=== PATIENT | male | born 1990 | race Caucasian/White ===

== ENCOUNTER 2017-08-01 21:28 | Inpatient (IN) | payer BC, OTHER ==
[~2017-08-01] VITALS: Ht 172.7 cm; Wt 86.2 kg
[2017-08-01] VITALS: BP 124/85
[2017-08-01] MEDS ORDERED: CLONIDINE HCL 0.1 MG TABLET PO PRN (23:00)
[2017-08-01] MEDS ORDERED: LORAZEPAM 2 MG/1 ML VIAL IM PRN (23:00)
[2017-08-01] MEDS ORDERED: LORAZEPAM 1 MG TABLET PO PRN (23:00)
[2017-08-01] MEDS ORDERED: DICYCLOMINE HCL 20 MG TABLET PO PRN (23:00)
[2017-08-01] MEDS ORDERED: ONDANSETRON 4 MG/2 ML VIAL IM PRN (23:00)
[2017-08-01] MEDS ORDERED: LOPERAMIDE HCL 2 MG CAPSULE PO PRN ×2 (23:00)
[2017-08-01] MEDS ORDERED: ACETAMINOPHEN 325 MG TABLET PO PRN (23:00)
[2017-08-01] MEDS ORDERED: METHOCARBAMOL 750 MG TABLET PO PRN (23:00)
[2017-08-01] MEDS ORDERED: BUPRENORPHINE HCL 2 MG TAB.SUBL SL PRN (23:00)
[2017-08-01] MEDS ORDERED: IBUPROFEN 600 MG TABLET PO PRN (23:00)
[2017-08-01] MEDS ORDERED: MAGNESIUM HYDROXIDE 30 ML LIQUID UDC PO PRN (23:00)
--- NOTE | 2017-08-01 23:10 | NUR ---
INTAKE ASSESSMENT BP: 172/86, HR:100, RR:18, SpO2: 96%, T:98.0 Pt is intoxicated. Pt is in stable condition and able to be admitted on the unit. Unit protocols regarding medications and vital signs every 4 hours were explained. Pt verbalized understanding. Will continue admission upon arrival on the unit.
[2017-08-01 23:51] LABS: BASOPHILS # (AUTO) 0.1 K/uL (0.0-8.0); BASOPHILS % (AUTO) 0.6 % (0.0-2.0); EOSINOPHILS % (AUTO) 0.3 % (0.0-7.0); HEMATOCRIT 47.9 % (36.7-47.1); HEMOGLOBIN 16.1 g/dL (12.5-16.3); LYMPHOCYTES # (AUTO) 2.2 K/uL (20.0-40.0); LYMPHOCYTES % (AUTO) 18.7 % (20.5-51.5); MEAN CORPUSCULAR HEMOGLOBIN 31.1 uug (23.8-33.4); MEAN CORPUSCULAR HGB CONC 34 g/dL (32.5-36.3); MEAN CORPUSCULAR VOLUME 92.5 fL (73.0-96.2); MONOCYTES # (AUTO) 1.1 K/uL (2.0-10.0); MONOCYTES % (AUTO) 9.2 % (0.0-11.0); NEUTROPHILS # (AUTO) 8.4 K/uL (1.8-8.9); NEUTROPHILS % (AUTO) 71.2 % (38.5-71.5); PLATELET COUNT (AUTO) 224 K/uL (152-348); RED BLOOD CELL COUNT(AUTO) 5.18 MIL/uL (4.06-5.63); WHITE BLOOD COUNT (AUTO) 11.7 K/uL (3.6-10.2)
[2017-08-01 23:55] LABS: ETHANOL < 3 MG/DL (0-0)
--- NOTE | 2017-08-01 23:55 | NUR ---
ADMISSION NOTE Pt arrived ambulatory from [facility] Intake to the third floor accompanied by a WINE STEWARD/STEWARDESS at 2321. Pt is a 27 year old male admitted on 08/01/17 for ETOH, Opiate, Benzodiazepine and Methamphetamine withdrawal. Pt is full code with NKA. He reports PMHx of anxiety and depression. He brought home medications and supplements. Medication has been reconciled. Pt reports coming from [facility] in [place], [place]. His longest sobriety was for 2 weeks, 5 days ago. He reports he is here because" I relapsed." He describes his current use as: 1. ETOH (beer) "20" beers daily for 5 days. Last dose: 07/31/17 2. Heroin IV 1 gram daily for 5 days. Last dose: 08/01/17 3. Klonopin 6-12 mg daily for 5 days. Last dose: 08/01/17 4. Methamphetamine IV intermittently for 5 days. Last dose: Unable to recall. He describes his withdrawal symptoms as: " body aches, nausea, vomiting, insomnia, tremors, chills and sweats" Upon assessment, pt is alert and oriented x4, speech is clear but delayed from intoxication. Pt noted to be anxious, restless, agitated, fatigued, and irritable. He is noted with poor eye contact, vague answers during admission interview, poor insight, flushed face, difficulty concentrating and reported he just wants to go to sleep. Heart rate is regular. He denies chest pain or SOB. PERRLA, breathing is even and unlabored, lung sounds clear. Abdomen is soft and non-distended. Bowel sounds present in all quadrants, last BM 07/31/17. Pt reports that BM is regular. Pt's skin is warm, dry and intact. Pt was seen and examined by Dr. Crow. Pt oriented to room and unit. Safety measures in place, side rails up x2. Will continue to monitor.
[2017-08-01 23:58] LABS: ALANINE AMINOTRANSFERASE 167 U/L (16-63); ALKALINE PHOSPHATASE 110 U/L (50-136); AMYLASE 42 U/L (25-115); ASPARTATE AMINOTRANSFERASE 88 U/L (15-37); BILIRUBIN,TOTAL 1.8 mg/dL (0.2-1.0); CARBON DIOXIDE 31 mmol/L (21-32); CHLORIDE 98 mmol/L (98-107); CREATININE 1.2 mg/dL (0.6-1.3); GLUCOSE 129 mg/dL (74-106); MAGNESIUM 2.1 mg/dL (1.8-2.4); POTASSIUM 3.9 mmol/L (3.5-5.1); TOTAL PROTEIN, SERUM 8.6 g/dL (6.4-8.2); UREA NITROGEN, BLOOD 20 mg/dL (7-18)
[2017-08-02] VITALS: BP 124/85
[2017-08-02 00:32] LABS: *AMPHETAMINE, URINE POSITIVE (NEGATIVE); *BARBITURATE, URINE NEGATIVE (NEGATIVE); *CANNABINOID, URINE NEGATIVE (NEGATIVE); *COCCAINE, URINE NEGATIVE (NEGATIVE); *OPIATE, URINE POSITIVE (NEGATIVE); *PHENCYCLIDINE SCREEN,URINE NEGATIVE (NEGATIVE)
[2017-08-02] MEDS ORDERED: VITA1TAB37 PO (00:47)
[2017-08-02] MEDS ORDERED: GLUC-199 PO (00:47)
[2017-08-02] MEDS ORDERED: MIRT45TA PO (00:47)
[2017-08-02] MEDS: ONDANSETRON ODT 4 MG TAB.RAPDIS SL PRN (03:31)
--- NOTE | 2017-08-02 03:31 | NUR ---
PRN ZOFRAN Pt complains of nausea with no episode of vomiting. PRN Zofran administered as ordered. Breathing even and unlabored, safety measures in place. Will monitor effectiveness.
[2017-08-02 04:00] VITALS: BP 131/71
--- NOTE | 2017-08-02 04:01 | NUR ---
PRN ZOFRAN REASSESSMENT PRN medication effective. Pt denies nausea and reports feeling better. Safety measures in place. Will monitor.
[2017-08-02] MEDS: LORAZEPAM 1 MG TABLET PO PRN ×2 (04:12→17:05)
--- NOTE | 2017-08-02 04:12 | NUR ---
PRN ATIVAN Pt noted to be restless, anxious, irritable fidgety and unable to sit still. Pt complains of slight dizziness. CIWA:11. PRN Ativan 1 mg administered as ordered. Breathing even and unlabored, safety measures in place. Will monitor effectiveness.
--- NOTE | 2017-08-02 05:12 | NUR ---
PRN ATIVAN REASSESSMENT PRN medication effective. Pt is lying in bed with eyes closed noted to be asleep. Breathing is even and unlabored, safety measures in place. Will continue to monitor.
--- NOTE | 2017-08-02 07:25 | NUR ---
END OF SHIFT Pt is a 27 year old male admitted on 08/01/17 for ETOH, Benzodiazepine and Opiate withdrawal. He remains alert and oriented x4. He was noted with anxiety, agitation, restlessness, insomnia, and nausea during the shift. At 0331 he received PRN Zofran. At 0412 he received PRN Ativan. He slept a total of 2 hrs, Intake: 710 mL, Void: x2, BM:0, COWS;8 at 0600 and CIWA: 11 at 0400. Breathing is even and unlabored, safety measures in place. Endorsed to AM shift.
--- NOTE | 2017-08-02 07:30 | NUR ---
Start Of Shift Report received from health education teacher nurse. Pt is a 27 year old male admitted for ETOH, Opiate and methamphetamine withdrawals. Per health education teacher nurse pt's last CIWA score was a 11 COWS 8 assessed at 1999. Upon start of shift pt was laying in bed resting with his eyes closed, when greeted pt replied by saying "I feel so tired, last night i didn't even sleep, when am i getting my medication, i feel sick". Pt appears flushed unkempt and diaphoretic, eyes half open and red. Pt's room has spilled drinks on the floor chips and candy on the floor and clothes tossed around the room. Pt's expression is worried, anxious irritable confused, exhausted and frustrated. During assessment pt is A&Ox3 lung sounds clear bilaterally radial pulse is regular, abdomen soft and non-tender. Abdominal sounds Active x4 quadrants pt c/o abdominal cramps . Pt's skin warm dry and intact. Pt is currently not on a taper but has PRN medications in case of withdrawal symptoms. Pt received PRN Zofran and Ativan last night which were effective per health education teacher nurse. Pt encouraged to drink more fluids to help facilitate with detox process. Pt slept a total of 2 hours on and off last night, continues to be on fall and seizure precautions. Bed in lowest position. Side rails up x2. Call light functioning and within reach. All needs attended and met. Will continue to monitor.
[2017-08-02 08:00] VITALS: BP 141/73
[2017-08-02] MEDS ORDERED: TUBERCULIN,PURIF.PROT.DERIV. 5 TU/0.1 ML TEST ID ONE (09:00)
[2017-08-02] MEDS: GABAPENTIN 400 MG CAPSULE PO SCH ×3 (09:47→22:15)
[2017-08-02] MEDS: FOLIC ACID 1 MG TABLET PO SCH (09:48)
[2017-08-02] MEDS: THIAMINE HCL 100 MG TABLET PO SCH (09:48)
[2017-08-02] MEDS: MULTIVITAMINS,THERAPEUTIC TABLET PO SCH (09:48)
--- NOTE | 2017-08-02 09:48 | NUR ---
PRN medication Pt c/o anxiety and withdrawal symptoms, presented with sweat, agitation, tremors, and headache, upon assessment pt's CIWA score was 13 PRN Ativan 2mg administered PO, will continue to monitor
--- NOTE | 2017-08-02 10:48 | NUR ---
PRN reassessment Medication effective pt reported relief and his CIWA score has decreased to 9, all needs met will continue to monitor.
[2017-08-02 12:00] VITALS: BP 125/72
[2017-08-02 16:00] VITALS: BP 136/85
[2017-08-02] MEDS: QUETIAPINE FUMARATE 25 MG TABLET PO SCH (17:05)
--- NOTE | 2017-08-02 17:06 | NUR ---
PRN medication Pt c/o anxiety and withdrawal symptoms, presented with sweat, agitation, tremors, and headache, upon assessment pt's CIWA score was 10 and COWS score was 15 PRN Ativan 1mg and Tylenol administered PO, and Subutex 4mg administered Sublingual stayed with pt until dissolved, assessed mouth medication was gone will continue to monitor
--- NOTE | 2017-08-02 18:06 | NUR ---
PRN reassessment Medications effective pt reported relief and his CIWA score has decreased to 8 and COWS score decreased to 10, all needs met will continue to monitor.
--- NOTE | 2017-08-02 19:25 | NUR ---
End of shift Report given to chemistry manager nurse. VS monitored closely q 4 hours. Withdrawal symptoms were closely monitored. Initial COWS 9 CIWA 13. Patient encouraged adequate PO fluid intake as tolerated. Patient presented with tremors and anxiety during the day. Last COWS 10 CIWA 8. Per patient, Subutex and Ativan have been helping him with his withdrawal symptoms. Pt ate all of his meals. Pt received PRN Ativan 1mg and Ativan 2mg Subutex 4mg, and Tylenol 650mg, all medications were effective. Pt reported a soar throat and had a minor fever, MD notified order received for culture of throat, Endorsed to chemistry manager. Patient encouraged to attend group therapies/sessions to learn new coping skills to recent relapse, patient denies SI/HI. Participated in group and therapy sessions. All needs met and attended
--- NOTE | 2017-08-02 19:30 | NUR ---
START OF SHIFT Received 27 year old male patient admitted on 08/01/17 for ETOH, Heroin, Klonopin and Methamphetamine withdrawal. He is alert and oriented x4. He continues on PRN only medications and is tolerating well. Pt's room noted to be odorous with garbage on floor. He is noted to be fatigued, drowsy, anxious, restless, agitated, and suspicious. Per endorsement, he received PRN Ativan 2 mg, Subutex 4mg, Ativan 1 mg and Tylenol. Flu and Strep c/s ordered. Last COWS:10, CIWA:8 at 1800. Breathing is even and unlabored, safety measures in place. Will continue to monitor.
[2017-08-02 20:00] VITALS: BP 118/72
--- NOTE | 2017-08-02 20:55 | NUR ---
BEHAVIOR NOTE Primary nurse walked into pt's room to check on pt. Pt laying down in bed, appeared drowsy,fatigued and complained of withdrawal symptoms. Syringe was found on bed next to pt. Primary nursed asked pt if pt brought in the syringe. Pt responded " yeah, it was meant to be thrown away." Primary nurse confiscated syringe. Syringe was thrown away in sharps container. Charge nurse, COLE, and Dr. Crow made aware. Addendum: 08/02/17 at 2240 by JESSENIA JUÁREZ RN Incident Report done on [facility]'s website, with incident report #: [id number]
--- NOTE | 2017-08-02 21:45 | NUR ---
INCIDENT Around 2054, nurse found syringe with needle containing reddish liquid on the bed next to the patient. The syringe is not [employer]'s. Picture was taken as evidence. Patient admitted that he hid the substances and paraphernalias "clenched" around his anal area. COLE Meier, and Dr. Crow were notified. Patient was placed on strict room restriction with no patio privileges. Patient was also place don 1:1. Full body search and room search was done. Cotton with Heroin tar was also found. Dr. Crow spoke with patient. Gokul, rd manager; Jean Paul, Director of Client Services and COLE Meier were all notified. Dr. Crow spoke with patient as well as Jean Paul and Gokul. Patient was informed of the gravity of this incident. MANAGER OF TIRES SALES Therapeutic Radiologist was also involved and spoke with patient. Incident report was done in the hospital website.
--- NOTE | 2017-08-02 22:00 | NUR ---
BEHAVIOR NOTE Primary nurse offered pt's routine medications of Neurontin 800 mg and Remeron 45 mg. Pt requested Subutex d/t complaints of withdrawal symptoms of chills, sweats, and body aches. Primary nurse explained to pt that medication was held d/t MD order related to the incident. Primary nurse offered non-narcotic medications to keep pt comfortable throughout the night. Pt became very agitated, irritable, and angry. Pt raised his voice at primary nurse and SECTION HAND supervisor boat outfitting and stated " So now I get to have a shitty night, and I get a room mate that's going to watch me breathe all night. I can't go out to smoke! I can't leave my room! You could have just thrown it away! " Primary nurse sternly verbalized to pt that his actions and behavior is unacceptable and not tolerated at this facility. Pt verbalized understanding and requested to take his scheduled medications.
--- NOTE | 2017-08-02 22:05 | NUR ---
PT REFUSAL Pt refused strep, influenza and throat culture. made aware.
[2017-08-02] MEDS: MIRTAZAPINE 15 MG TABLET PO SCH (22:14)
--- NOTE | 2017-08-02 22:15 | NUR ---
PRN CLONIDINE Pt complains of anxiety, agitation, chills and sweats. PRN Clonidine administered as ordered. Safety measures in place. Will monitor effectiveness.
[2017-08-02] MEDS ORDERED: HYDROXYZINE PAMOATE 25 MG CAPSULE PO PRN (23:00)
[2017-08-02] MEDS ORDERED: NICOTINE 14 MG/24HR PATCH TD PRN (23:00)
[2017-08-02] MEDS ORDERED: NICOTINE POLACRILEX 4 MG GUM-PK OF TEN BC PRN (23:00)
--- NOTE | 2017-08-02 23:15 | NUR ---
PRN REASSESSMENT PRN medication effective. Pt lying in bed watching TV, noted to be more calm with decrease anxiety and agitation. Breathing even and unlabored, safety measures in place. Will monitor.
--- NOTE | 2017-08-03 | NUR ---
VITALS REFUSED, COWS/CIWA DEFERRED 0000 vitals refused. COWS and CIWA deferred d/t pt lying in bed with eyes closed noted to be asleep. Breathing is even and unlabored, safety measures and 1:[address] Will monitor .
--- NOTE | 2017-08-03 02:46 | NUR ---
PRN MOTRIN Pt complains of body aches and is requesting Motrin. PRN Motrin administered as ordered. Will monitor effectiveness.
[2017-08-03] MEDS: MAG HYDROX/AL HYDROX/SIMETH 30 ML LIQUID UDC PO PRN ×2 (02:57→13:09)
[2017-08-03] MEDS: ONDANSETRON ODT 4 MG TAB.RAPDIS SL PRN (02:58)
--- NOTE | 2017-08-03 02:58 | NUR ---
PRN ZOFRAN, BENTYL, MYLANTA Pt complains of nausea, abdominal cramps and heart burn. PRN Zofran, Bentyl, and Mylanta administered as ordered. Breathing even and unlabored, safety measures in place. Will monitor effectiveness.
--- NOTE | 2017-08-03 03:46 | NUR ---
PRN MOTRIN REASSESSMENT PRN medication effective. Pt is lying in bed with eyes closed noted to be asleep. Breathing is even and unlabored, safety measures in place. Will monitor
--- NOTE | 2017-08-03 03:58 | NUR ---
PRN RAMYA STEINBERG MYLANTA REASSESSMENT PRN medications effective. Pt is lying in bed with eyes closed noted to be asleep. Breathing is even and unlabored, safety measures in place. Will monitor.
--- NOTE | 2017-08-03 04:00 | NUR ---
VITALS REFUSED, COWS/CIWA DEFERRED 0400 vitals refused. COWS/CIWA deferred d/t pt lying in bed with eyes closed noted to be asleep. Breathing even and unlabored, safety measures in place. Will monitor.
--- NOTE | 2017-08-03 07:14 | NUR ---
END OF SHIFT Pt is a 27 year old male patient admitted on 08/01/17 for ETOH, Opiate, Benzodiazepine and Methamphetamine withdrawal. He remains alert and oriented x4. Pt was noted to be drowsy, confused, anxious, agitated, restless and suspicious during the shift. A syringe filled with red fluid was found on pt's bed as well as black tar substance. Charge nurse, MD COLE, twine reeling machine operator, and Director of client services well all made aware. Pt was placed on room restriction, patio restriction and 1:1. He refused his flu and strep throat culture. He received PRN clonidine, Motrin, Zofran, Mylanta and Bentyl. He slept a total of 7hrs, Intake:1,296mL, Void:x5, BM:x1,COWS: 14, CIWA:9 at 2200. Breathing is even and unlabored, safety measures in place. Endorsed to AM shift.
--- NOTE | 2017-08-03 07:24 | NUR ---
BEGINNING OF SHIFT Patient endorsement report received from cattle shipper nurse, all pertinent information discussed. Patient is a 27 year old male with admitting Dx: BZO/Opiate/ETOH withdrawal, with substance use of: methamphetamine. Patient continues under very close observation, patient currently with no ongoing taper. patient currently with 1:1 sitter at bedside for safety precautions. patient is on room restriction and patio restriction as per dr. Crow. due to patient found with syringe at bedside during cattle shipper. Per cattle shipper patient with last cow score of: 14, and ciwa score of: 9. Received PRN: Motrin, Zofran, Mylanta, and Bentyl during cattle shipper. slept for 7 hours. Fall and seizure precautions observed at all times. Patient received awake, alert and oriented x4, educated regarding plan of care for the day, and medication regimen with good verbal understanding. fall and seizure precautions observed and in place. will continue to monitor closely. safety measures in place.
[2017-08-03 07:27] LABS: BASOPHILS % (AUTO) 0.5 % (0.0-2.0); EOSINOPHILS # (AUTO) 0.3 K/uL (0.0-0.7); EOSINOPHILS % (AUTO) 4.5 % (0.0-7.0); LYMPHOCYTES # (AUTO) 2.4 K/uL (20.0-40.0); LYMPHOCYTES % (AUTO) 31.2 % (20.5-51.5); MEAN CORPUSCULAR HEMOGLOBIN 31.4 uug (23.8-33.4); MEAN CORPUSCULAR HGB CONC 34 g/dL (32.5-36.3); MEAN CORPUSCULAR VOLUME 91.8 fL (73.0-96.2); MONOCYTES # (AUTO) 0.7 K/uL (2.0-10.0); NEUTROPHILS # (AUTO) 4.2 K/uL (1.8-8.9); NEUTROPHILS % (AUTO) 54.8 % (38.5-71.5); PLATELET COUNT (AUTO) 180 K/uL (152-348); RED BLOOD CELL COUNT(AUTO) 4.64 MIL/uL (4.06-5.63)
[2017-08-03 07:34] LABS: BILIRUBIN,DIRECT 0.2 mg/dL (0.0-0.2); BILIRUBIN,TOTAL 0.9 mg/dL (0.2-1.0); HEMOGLOBIN 14.6 g/dL (12.5-16.3); POTASSIUM 3.8 mmol/L (3.5-5.1); WHITE BLOOD COUNT (AUTO) 7.7 K/uL (3.6-10.2)
[2017-08-03 07:35] LABS: HEMATOCRIT 42.6 % (36.7-47.1)
[2017-08-03 08:00] VITALS: BP 136/68
[2017-08-03 08:06] LABS: HEPATITIS B SURFACE AG Negative (Negative)
[2017-08-03] MEDS ORDERED: HYDROXYZINE PAMOATE 25 MG CAPSULE PO PRN (09:00)
[2017-08-03] MEDS: THIAMINE HCL 100 MG TABLET PO SCH (09:00)
[2017-08-03] MEDS: FOLIC ACID 1 MG TABLET PO SCH (09:00)
[2017-08-03] MEDS: QUETIAPINE FUMARATE 25 MG TABLET PO SCH ×3 (09:00→17:00)
[2017-08-03] MEDS: MULTIVITAMINS,THERAPEUTIC TABLET PO SCH (09:00)
[2017-08-03] MEDS: GABAPENTIN 400 MG CAPSULE PO SCH ×3 (09:22→21:53)
[2017-08-03] MEDS: BUPRENORPHINE HCL 2 MG TAB.SUBL SL SCH ×3 (10:48→21:53)
--- NOTE | 2017-08-03 13:09 | NUR ---
PRN MYLANTA Patient c/o heart burn. administered Mylanta as ordered, will monitor effectiveness of medication.
[2017-08-03 13:51] VITALS: BP 122/71
--- NOTE | 2017-08-03 14:09 | NUR ---
MYLANTA REASSESSMENT Medication effective, patient with no c/o heartburn, will continue to monitor.
[2017-08-03] MEDS: MIRALAX 17 GM POWD.PACK PO PRN (14:29)
--- NOTE | 2017-08-03 14:29 | NUR ---
PRN MIRALAX patient reported feeling constipated, administered miralax as ordered, will monitor effectiveness of medication.
[2017-08-03] MEDS ORDERED: LORAZEPAM 1 MG TABLET PO PRN (14:45)
[2017-08-03 17:04] VITALS: BP 128/77
[2017-08-03] MEDS: LORAZEPAM 1 MG TABLET PO PRN (17:19)
--- NOTE | 2017-08-03 17:19 | NUR ---
PRN ATIVAN Patient was administered Ativan 1 mg PO for s/sx of withdrawal. Presented with increase anxiety, agitation, restlessness, mild nausea. will monitor effectiveness of medication closely. Addendum: 08/03/17 at 1821 by ABBIE SMITH LVN administered 1 mg Po for ciwa score of: 10.
--- NOTE | 2017-08-03 18:01 | NUR ---
MIRALAX REASSESSMENT Patient reported he had one bowel movement, and no longer feels constipated, patient with bowel sounds in all quadrants, abdomen is soft and non distended. encouraged to increase PO fluid intake as tolerated.
--- NOTE | 2017-08-03 18:19 | NUR ---
ATIVAN REASSESSMENT Medication effective, decrease in ciwa score from 10 to 8, patient reports feeling less anxious and agitated, will continue to monitor.
--- NOTE | 2017-08-03 19:00 | NUR ---
END OF SHIFT Patient alert and oriented x4, monitored closely during shift. Patient has a worried, and anxious facial expression. Patient is disheveled. noted with flat affect, and anxious mood. Continues with 1: 1 sitter, room restriction and patio restriction as ordered. During shift patient refused all doses of Seroquel, Dr. fuentes is aware, per psychiatrist patient to continue to be encouraged to take medication, risk vs benefits of refusing medication were explained with good verbal understanding. Patient with admitting Dx: opiate withdrawal, patient was started on a Subutex taper as ordered. During shift patient presented with: elevated heart rate, restlessness, bone and joint aches, nausea, irritable, anxiety, and tremors. Initial cow score of: 13, and ciwa score of: 10; last cow score of: 10 and last ciwa score of: 10. detox medication effective at reducing withdrawal symptoms. Patient was encouraged adequate PO fluid intake as tolerated. Was administered PRN: Mylanta, miralax, and Ativan for s/sx of withdrawal as ordered, medications were effective. Patient encouraged to participate in therapy sessions, patient denies any SI/HI. Patient was encouraged to verbalize feelings, encouraged to develop coping skills and utilization of non pharmacological interventions. patients safety measures are in place. call light kept with in reach, will continue to monitor. Endorsed to overnight associate nurse, all pertinent information discussed.
--- NOTE | 2017-08-03 19:10 | NUR ---
Start of Shift Patient Received. Patient is noted in his room, awake, alert and verbally responsive. Breathing even and non labored. He remains on 1:1 for safety. Per endorsement, Patient is currently receiving PRN medications for increased signs and symptoms of withdrawal. Patient remains on 1:1 for safety. He has been noted to refuse scheduled Seroquel doses and was given PRN Ativan 1mg for elevated CIWA. Patient also received PRN Mylanta and Miralax with both medications noted to be effective. All needs attended to promptly. Will continue plan of care as ordered.
[2017-08-03 20:30] VITALS: BP 136/70
[2017-08-03] MEDS: MIRTAZAPINE 15 MG TABLET PO SCH (21:53)
--- NOTE | 2017-08-04 00:51 | NUR ---
Vitals Refused, COWS/CIWA Deferred 0000 vitals refused. COWS and CIWA deferred due to patient sleeping. Breathing even and non labored. Patient remains on 1:1 for safety. Will continue to monitor. Addendum: 08/04/17 at 0051 by MATHEW BYNUM LVN Amended: Links added.
--- NOTE | 2017-08-04 04:07 | NUR ---
Vitals Refused, COWS/CIWA Deferred 0400 vitals refused. COWS and CIWA deferred due to patient sleeping. Breathing even and non labored. Patient remains on 1:1 for safety. Will continue to monitor.
--- NOTE | 2017-08-04 07:18 | NUR ---
End of Shift Patient is noted in bed sleeping. Breathing even and non labored. He remains on 1:1 for safety. Patient is currently receiving PRN medications for increased signs and symptoms of withdrawal. No PRN Medications administered. Last noted COWS 11 and CIWA 10. Patient slept a total of 6 hours. All needs attended to promptly. Will continue plan of care as ordered.
--- NOTE | 2017-08-04 07:33 | NUR ---
BEGINNING OF SHIFT Patient endorsement report received from police shift commander nurse, all pertinent information discussed. Patient is a 27 year old male with admitting Dx: BZO/Opiate/ETOH withdrawal, with substance use of: methamphetamine. Patient continues under very close observation, patient currently with no ongoing taper. patient currently with 1:1 sitter at bedside for safety precautions. patient is on room restriction and patio restriction as per dr. Crow. Per police shift commander patient with last cow score of: 11, and ciwa score of: 10. Received no PRN medications during police shift commander. slept for 7 hours. Fall and seizure precautions observed at all times. Patient received awake, alert and oriented x4, educated regarding plan of care for the day, and medication regimen with good verbal understanding. fall and seizure precautions observed and in place. will continue to monitor closely. safety measures in place.
[2017-08-04 08:31] VITALS: BP 131/73
[2017-08-04] MEDS: FOLIC ACID 1 MG TABLET PO SCH (08:34)
[2017-08-04] MEDS: THIAMINE HCL 100 MG TABLET PO SCH (08:34)
[2017-08-04] MEDS: GABAPENTIN 400 MG CAPSULE PO SCH ×3 (08:34→21:00)
[2017-08-04] MEDS: MULTIVITAMINS,THERAPEUTIC TABLET PO SCH (08:34)
[2017-08-04] MEDS: QUETIAPINE FUMARATE 25 MG TABLET PO SCH ×2 (08:36→12:07)
[2017-08-04] MEDS ORDERED: BUPRENORPHINE HCL 2 MG TAB.SUBL SL SCH (09:00)
[2017-08-04] MEDS ORDERED: KETOROLAC TROMETHAMINE 30 MG INJ IM PRN (11:15)
[2017-08-04 12:06] VITALS: BP 133/89
[2017-08-04] MEDS: LORAZEPAM 1 MG TABLET PO PRN ×2 (12:06→21:00)
--- NOTE | 2017-08-04 12:06 | NUR ---
PRN ATIVAN Patient was administered Ativan 1 mg PO for s/sx of withdrawal. Presented with increase anxiety, agitation, restlessness. with ciwa score of: 10. will monitor effectiveness of medication closely.
--- NOTE | 2017-08-04 13:06 | NUR ---
ATIVAN REASSESSMENT Medication effective, decrease in ciwa score from 10 to 8, patient reports feeling less anxious and agitated, will continue to monitor.
[2017-08-04] MEDS: BUPRENORPHINE HCL 2 MG TAB.SUBL SL SCH ×2 (15:30→21:00)
[2017-08-04] MEDS: MIRALAX 17 GM POWD.PACK PO PRN (15:52)
--- NOTE | 2017-08-04 15:52 | NUR ---
PRN MIRALAX patient reported feeling constipated, administered miralax as ordered, will monitor effectiveness of medication.
[2017-08-04] MEDS ORDERED: Amoxicillin-Clavul 875MG Tab PO (16:52)
[2017-08-04] MEDS ORDERED: IBUP-1955 PO (16:52)
[2017-08-04] MEDS ORDERED: CLON0.1T14 PO (16:52)
[2017-08-04] MEDS ORDERED: GABA-536 PO (16:52)
[2017-08-04] MEDS ORDERED: HYDR-3895 PO (16:52)
[2017-08-04] MEDS ORDERED: DICY20TA28 PO (16:52)
[2017-08-04] MEDS ORDERED: METH-406 PO (16:52)
[2017-08-04] MEDS ORDERED: MIRT15TA7 PO (16:52)
[2017-08-04] MEDS ORDERED: LACT1CAP57 PO (16:52)
[2017-08-04 17:22] VITALS: BP 137/74
--- NOTE | 2017-08-04 19:02 | NUR ---
END OF SHIFT Patient alert and oriented x4, monitored closely during shift. Patient has a worried, and anxious facial expression. Patient is disheveled. noted with flat affect, and anxious mood. Continues with 1: 1 sitter, room restriction and patio restriction as ordered. During shift patient refused all doses of Seroquel, Dr. fuentes is aware and medication was discontinued, Patient with admitting Dx: opiate withdrawal, patient was started on a Subutex taper as ordered. During shift patient presented with: elevated heart rate, restlessness, bone and joint aches, nausea, irritable, anxiety, and tremors. Initial cow score of: 10, and ciwa score of: 10; last cow score of: 8 and last ciwa score of: 8. detox medication effective at reducing withdrawal symptoms. Patient was encouraged adequate PO fluid intake as tolerated. Was administered PRN: miralax, and Ativan for s/sx of withdrawal as ordered, medications were effective. Patient encouraged to participate in therapy sessions, patient denies any SI/HI. Patient was encouraged to verbalize feelings, encouraged to develop coping skills and utilization of non pharmacological interventions. patients safety measures are in place. call light kept with in reach, will continue to monitor. Endorsed to package drier nurse, all pertinent information discussed.
--- NOTE | 2017-08-04 19:15 | NUR ---
Start of Shift Patient Received. Patient is in the activities room participating in a group meeting. He remains on 1:1 for safety. Per endorsement, patient continues on a modified Subutex taper and was started on ATB Augmentin for acute Pharyngitis. He received PRN Ativan 1mg and Miralax with medication noted to be effective. Last noted CIWA 8 and COWS 8. All needs attended to promptly. Will continue plan of care as ordered.
[2017-08-04 20:32] VITALS: BP 142/82
[2017-08-04] MEDS: MIRTAZAPINE 15 MG TABLET PO SCH (21:00)
[2017-08-04] MEDS: BENZOCAINE/MENTH/CETYLPYRD LOZENGE MM PRN (21:00)
[2017-08-04] MEDS ORDERED: AMOXICILLIN-CLAVUL 875-125MG TABLET PO SCH (21:00)
[2017-08-04] MEDS: LACTOBACILLUS RHAMNOSUS GG 1 EACH CAPSULE PO SCH (21:00)
[2017-08-04] MEDS: CLONIDINE HCL 0.1 MG TABLET PO SCH (21:00)
--- NOTE | 2017-08-04 21:00 | NUR ---
PRN Medication Administration/MD communication Patient is noted with increased anxiety, agitation, tremulous, with increased sweats. CIWA noted to be 9. PRN Ativan 1mg administered with routine medications. Patient also noted with new order for Augmentin, patient noted to state That gives me explosive diarrhea and makes me throw up. It takes my stomach apart. Relayed to MD with new orders for Levaquin 750mg. Will administer as ordered.
[2017-08-04] MEDS ORDERED: LEVOFLOXACIN 750 MG TABLET PO SCH (21:30)
--- NOTE | 2017-08-04 22:00 | NUR ---
PRN Medication Reassessment Patient is able to verbalize the medication really helped the anxiety and frustration of being with a sitter. PRN Ativan 1mg noted to be effective. CIWA noted to be 4. Will continue to monitor.
[2017-08-05 00:16] VITALS: BP 135/79
--- NOTE | 2017-08-05 00:25 | NUR ---
PRN Medication Administration Patient is noted awake, verbalizing increased frustration, anxiety, agitation, increased sweats, noted to be tremulous. CIWA noted to be 18. PRN Ativan 2mg administered. Will continue to monitor.
--- NOTE | 2017-08-05 01:20 | NUR ---
PRN Medication Reassessment Patient is noted in bed sleeping. Breathing even and non labored. No signs of restlessness or discomfort noted. Patient was given PRN Ativan 2mg with medication noted to be effective. Will continue to monitor.
[2017-08-05 04:20] VITALS: BP 123/77
--- NOTE | 2017-08-05 07:17 | NUR ---
End of Shift Patient is in bed sleeping. Breathing even and non labored. No signs of restlessness or discomfort noted. He remains on 1:1 for safety. Patient continues on a modified Subutex taper and was started on ATB Levaquin for Acute Pharyngitis. Patient received PRN Ativan 1mg with routine medications and refused Remeron and states I dont want to take it because it was really hard for me to wake up this morning. Patient was also noted awake and noted with a CIWA of 18 and PRN Ativan 2mg administered with medication noted to be effective. He was noted awake once more at approx 0550 and verbalizing inability of sleeping. Patient was noted to state I need sleeping medication. I need me next dose of Ativan. Encouraged patient to attempt to get sleep and medications would be reviewed with MD. Patient is noted to be focused on PRN Ativan and when he will be receiving his next dose. Encouraged patient to focus on effective coping skills but patient noted to be passive. Patient noted to sleep a total of 4 hours. All needs attended to promptly. Will endorse to continue plan of care as ordered.
--- NOTE | 2017-08-05 07:40 | NUR ---
BEGINNING OF SHIFT Patient endorsement report received from batch operator nurse, all pertinent information discussed. Patient is a 27 year old male with admitting Dx: BZO/Opiate/ETOH withdrawal, with substance use of: methamphetamine. Patient continues under very close observation, patient currently with ongoing Subutex taper as ordered. patient currently with 1:1 sitter at bedside for safety precautions. Per batch operator patient with last cow score of: 10, and ciwa score of: 18. Received PRN: Ativan 1mg as ordered, and Ativan 2 mg as ordered for s/sx of withdrawal. slept for 4 hours. Fall and seizure precautions observed at all times. Patient received awake, alert and oriented x4, educated regarding plan of care for the day, and medication regimen with good verbal understanding. fall and seizure precautions observed and in place. will continue to monitor closely. safety measures in place.
[2017-08-05 08:19] VITALS: BP 131/78
[2017-08-05] MEDS: LACTOBACILLUS RHAMNOSUS GG 1 EACH CAPSULE PO SCH ×2 (08:50→21:59)
[2017-08-05] MEDS: THIAMINE HCL 100 MG TABLET PO SCH (08:50)
[2017-08-05] MEDS: GABAPENTIN 400 MG CAPSULE PO SCH ×3 (08:50→21:59)
[2017-08-05] MEDS: FOLIC ACID 1 MG TABLET PO SCH (08:51)
[2017-08-05] MEDS: BUPRENORPHINE HCL 2 MG TAB.SUBL SL SCH ×3 (08:51→22:00)
[2017-08-05] MEDS: CLONIDINE HCL 0.1 MG TABLET PO SCH ×2 (08:51→14:31)
[2017-08-05] MEDS: MULTIVITAMINS,THERAPEUTIC TABLET PO SCH (08:51)
[2017-08-05 13:50] VITALS: BP 125/69
[2017-08-05] MEDS: DICYCLOMINE HCL 20 MG TABLET PO SCH ×2 (14:30→21:59)
[2017-08-05] MEDS ORDERED: LORAZEPAM 1 MG TABLET PO SCH ×2 (15:00→21:00)
[2017-08-05 17:33] VITALS: BP 131/86
--- NOTE | 2017-08-05 19:01 | NUR ---
END OF SHIFT Patient alert and oriented x4, monitored closely during shift. Patient has a worried, and anxious facial expression. Patient is disheveled. noted with flat affect, and anxious mood. Continues with 1: 1 sitter, room restriction and patio restriction as ordered. Patient with admitting Dx: opiate withdrawal, patient continues on Subutex taper as ordered and was also started on a modified Ativan taper. During shift patient presented with: chills, difficulty sitting still, bone and joint aches, moist eyes, tremors that can be felt but not seen, and anxiety patient with initial cow score of: 8 and ciwa score of: 8; last cow score of: 7 and ciwa score of: 8. detox medication effective at reducing withdrawal symptoms. Patient was encouraged adequate PO fluid intake as tolerated. Was administered no PRNs during shift. Patient encouraged to participate in therapy sessions, patient denies any SI/HI. Patient was encouraged to verbalize feelings, encouraged to develop coping skills and utilization of non pharmacological interventions. patients safety measures are in place. call light kept with in reach, will continue to monitor. Endorsed to production shift supervisor nurse, all pertinent information discussed.
--- NOTE | 2017-08-05 19:20 | NUR ---
START OF SHIFT Patient is a 27-year-old male admitted on 08/01/17 for ETOH (beer), Heroin, Klonopin, and Meth withdrawal. Patient is currently on modified Ativan and Subutex tapers, tolerating well. Patients last COWS was 7, last CIWA 8 per day shift nurse. Patient received no PRN medications during day shift. Upon assessment, patient is unshaven and disheveled, complaining of "on and off dizziness." Patient states his anxiety is "worse than yesterday" and reports he had difficulty sleeping last night. Patient is currently on 1:1 for safety, seizure and fall precautions in place. Safety measures in place, side rails up x2, bed locked in low position, call light within reach. Will continue to monitor.
[2017-08-05 20:00] VITALS: BP 125/64
[2017-08-05] MEDS: MIRTAZAPINE 15 MG TABLET PO SCH (21:00)
[2017-08-05] MEDS: CLONIDINE HCL 0.2 MG TABLET PO SCH (21:59)
[2017-08-05] MEDS: LEVOFLOXACIN 750 MG TABLET PO SCH (21:59)
[2017-08-05] MEDS: BENZOCAINE/MENTH/CETYLPYRD LOZENGE MM PRN (23:19)
--- NOTE | 2017-08-05 23:19 | NUR ---
PRN CEPACOL Patient reports sore throat; PRN Cepacol lozenge given to patient. Safety measures in place, 1:1 at bedside, call light within reach. Will continue to monitor.
[2017-08-06] VITALS: BP 100/57
--- NOTE | 2017-08-06 | NUR ---
COWS & CIWA DEFERRED COWS and CIWA deferred due to patient sleeping; to be assessed and scored while patient is awake. Patient's respirations are even and unlabored, 16RR/min. Safety measures in place, side rails up x2, bed locked in low position, 1:[address] at bedside, call light within reach. Will continue to monitor.
[2017-08-06 04:00] VITALS: BP 108/61
--- NOTE | 2017-08-06 04:00 | NUR ---
COWS & CIWA DEFERRED COWS and CIWA deferred due to patient sleeping at 4AM; to be assessed and scored while patient is awake. Patient's respirations are even and unlabored, 16 breaths per min. Safety measures in place, side rails up x2, bed locked in low position, 1:[address] at bedside, call light within reach. Will continue to monitor.
--- NOTE | 2017-08-06 07:05 | NUR ---
END OF SHIFT Patient is a 27-year-old male admitted on 08/01/17 for ETOH (beer), Heroin, Klonopin, and Meth withdrawal. Patient is currently on modified Ativan and Subutex tapers, tolerating well. Patients last COWS was 10, last CIWA 12. Patient received PRN Cepacol for sore throat. Patient slept for 8 hours, total intake 472mL, void x2, stool x1. Patient was scheduled for 0700 Protonix but explicitly verbalized to nurse last night that if he was sleeping he did not want to be woken up. Patient stated, "If I'm asleep, don't wake me because I need my sleep." Charge nurse was notified, will endorse to day nurse to give upon patient awaking. Patient is continues on 1:1 for safety, sitter is at bedside, seizure and fall precautions in place. Safety measures in place, side rails up x2, bed locked in low position, call light within reach. Will endorse to day shift.
--- NOTE | 2017-08-06 07:34 | NUR ---
Start of shift- Patient is a 27-year-old male admitted on 08/01/17 for ETOH (beer), Heroin, Klonopin, and Meth withdrawal. Pt A&O X4. Patient is currently on modified Ativan and Subutex tapers, tolerating well. Patients last COWS was 10, last CIWA 12. Patient slept for 8 hours. Pt c/o sore throat and tongue, declines Cepacol. Patient is continues on 1:1 for safety, sitter is at bedside, seizure and fall precautions in place. Safety measures in place, side rails up x2, bed locked in low position, call light within reach. Will continue to monitor for withdrawal symptoms.
[2017-08-06] MEDS: PANTOPRAZOLE SODIUM 40 MG TABLET.DR PO SCH (07:39)
[2017-08-06 08:00] VITALS: BP 103/67
[2017-08-06] MEDS: GABAPENTIN 400 MG CAPSULE PO SCH (08:28)
[2017-08-06] MEDS: LACTOBACILLUS RHAMNOSUS GG 1 EACH CAPSULE PO SCH ×2 (08:28→21:55)
[2017-08-06] MEDS: FOLIC ACID 1 MG TABLET PO SCH (08:29)
[2017-08-06] MEDS: DICYCLOMINE HCL 20 MG TABLET PO SCH ×3 (08:29→21:55)
[2017-08-06] MEDS: THIAMINE HCL 100 MG TABLET PO SCH (08:29)
[2017-08-06] MEDS: MULTIVITAMINS,THERAPEUTIC TABLET PO SCH (08:29)
[2017-08-06] MEDS: BENZOCAINE/MENTH/CETYLPYRD LOZENGE MM PRN (08:29)
--- NOTE | 2017-08-06 08:32 | NUR ---
PRN CEPACOL LOZENGE- SORE THROAT
[2017-08-06] MEDS ORDERED: BUPRENORPHINE HCL 2 MG TAB.SUBL SL SCH ×2 (09:00)
[2017-08-06] MEDS ORDERED: LORAZEPAM 1 MG TABLET PO SCH (09:00)
[2017-08-06] MEDS: CLONIDINE HCL 0.1 MG TABLET PO SCH ×2 (09:15→15:36)
--- NOTE | 2017-08-06 09:15 | NUR ---
Dr. Crow D/C 1:1 sitter at bedside.
--- NOTE | 2017-08-06 09:30 | NUR ---
Reassess Cepacol, Pt states sore throat improved.
[2017-08-06] MEDS ORDERED: HYDROXYZINE PAMOATE 25 MG CAPSULE PO PRN (11:30)
--- NOTE | 2017-08-06 11:40 | NUR ---
Behavior Note- while Pt in group he was falling asleep, spilled drink, unstable when he is standing, stumbling. Performed room search and did not find any paraphernalia or drug substances. Notified Dr. Crow. Put Pt back on 1:1 sitter for safety. Obtained urine drug screen. When Pt notified he is back on 1:1 he became upset and swearing at staff. Addendum: 08/06/17 at 1154 by Anu Russell RN Dr. Crow ordered room restriction, no smoking, no patio privileges.
[2017-08-06 12:00] VITALS: BP 122/64
[2017-08-06 12:38] LABS: *AMPHETAMINE, URINE NEGATIVE (NEGATIVE); *BARBITURATE, URINE NEGATIVE (NEGATIVE); *CANNABINOID, URINE NEGATIVE (NEGATIVE); *COCCAINE, URINE NEGATIVE (NEGATIVE); *OPIATE, URINE POSITIVE (NEGATIVE); *PHENCYCLIDINE SCREEN,URINE NEGATIVE (NEGATIVE)
--- NOTE | 2017-08-06 14:30 | NUR ---
ROOM AND PATIO RESTRICTIONS RESCINDED. ONLY 1:1 NOW.
[2017-08-06] MEDS: LORAZEPAM 1 MG TABLET PO SCH ×2 (15:36→21:54)
[2017-08-06] MEDS: GABAPENTIN 300 MG CAPSULE PO SCH ×2 (15:37→21:54)
[2017-08-06] MEDS: BUPRENORPHINE HCL 2 MG TAB.SUBL SL SCH ×2 (15:38→21:57)
[2017-08-06 16:00] VITALS: BP 115/66
--- NOTE | 2017-08-06 18:52 | NUR ---
END OF SHIFT- Patient alert and oriented x4, monitored closely during shift. Patient has a worried, and anxious facial expression. Patient is disheveled. noted with flat affect, and anxious mood. Continues with 1: 1 sitter. Pt continues 5 day Subutex taper and 3 day modified Ativan taper. At 1600 last COWS -- and CIWA --. detox medication effective at reducing withdrawal symptoms. Patient was encouraged adequate PO fluid intake as tolerated. No PRNs during shift. Patient encouraged to participate in therapy sessions, patient denies any SI/HI. Patient was encouraged to verbalize feelings, encouraged to develop coping skills and utilization of non pharmacological interventions. Pt reports NKA, FULL CODE. Adequate PO fluid intake 2125 ml, void X 4, BM X 1. All safety precautions in place. Call light within reach. Will continue to monitor for withdrawal symptoms and endorse to PM shift. Addendum: 08/06/17 at 1905 by Anu Russell RN AT 1600 COWS 9, CIWA 10
--- NOTE | 2017-08-06 19:30 | NUR ---
Start of Shift Pt is a 27 y/o male admitted 08/01/17 for medically managed withdrawal/detox from ETOH, Heroin, Klonopin, and Methamphetamine. Pt found in room on 1:1 observation, manic, euphoric, inappropriate saying his male nurse "doesn't have the right equipment, doesn't have any teets". Pt hyperactive, extremely figity and vocal, unable to follow or respect boundaries. Hx of Bipolar Dx evident.COWS assessed at 12, CIWA 11. VS's stable with SBP 131, HR 79, RR 16. Will continue to monitor and attend promptly to all needs
[2017-08-06 20:00] VITALS: BP 131/65
[2017-08-06] MEDS ORDERED: MIRTAZAPINE 15 MG TABLET PO ONE (21:00)
[2017-08-06] MEDS: CLONIDINE HCL 0.2 MG TABLET PO SCH (21:55)
--- NOTE | 2017-08-06 21:55 | NUR ---
Med Refused Remeron 15mg PO refused, Pt says doesnt need/want it. Will continue to monitor and promptly attend to all needs
[2017-08-06] MEDS: LEVOFLOXACIN 750 MG TABLET PO SCH (21:56)
--- NOTE | 2017-08-07 | NUR ---
COWS & CIWA DEFERRED COWS and CIWA deferred due to patient sleeping at 12AM; to be assessed and scored while patient is awake. Patient's respirations are even and unlabored, 14 breaths per min. Safety measures in place, side rails up x2, bed locked in low position, 1:[address] at bedside, call light within reach. Will continue to monitor.
[2017-08-07 05:30] VITALS: BP 116/61
--- NOTE | 2017-08-07 06:44 | NUR ---
End of Shift Pt is a 27 y/o male admitted 08/01/17 for medically managed withdrawal/detox from ETOH, Heroin, Klonopin, and Methamphetamine. No PRN'S given for night, Remeron reduced from 45mg to 15mg PO and refused. Pt awake at 0530, requesting "something to help him sleep. VS's obtained at 0530 while pt awake. Last COWS/CIWA 04/17 AT 2000. Pt slept for 5 hours, 791 mls input, 5 voids and 2 BM's. Will continue to monitor, Promptly attending to all needs until giving oncoming shift endorsement.
--- NOTE | 2017-08-07 07:10 | NUR ---
start of shift note:received pt from shift production associate nurse, pt is in stable condition no s/s of pain or discomfort. at this time pt is sleeping in bed and remains on 1:1 for safety. pt is admitted to [facility] for polysubstance withdrawal/dependence. pts last documented cows 7 and ciwa 8. will encourage pt join activities and groups.
[2017-08-07] MEDS: PANTOPRAZOLE SODIUM 40 MG TABLET.DR PO SCH (07:50)
[2017-08-07] MEDS ORDERED: LORAZEPAM 1 MG TABLET PO SCH (09:00)
[2017-08-07] MEDS ORDERED: BUPRENORPHINE HCL 2 MG TAB.SUBL SL SCH (09:00)
[2017-08-07 09:18] VITALS: BP 100/61
[2017-08-07] MEDS: LACTOBACILLUS RHAMNOSUS GG 1 EACH CAPSULE PO SCH ×2 (09:23→21:19)
[2017-08-07] MEDS: THIAMINE HCL 100 MG TABLET PO SCH (09:23)
[2017-08-07] MEDS: GABAPENTIN 300 MG CAPSULE PO SCH ×3 (09:23→21:22)
[2017-08-07] MEDS: FOLIC ACID 1 MG TABLET PO SCH (09:24)
[2017-08-07] MEDS: CLONIDINE HCL 0.1 MG TABLET PO SCH ×2 (09:24→14:25)
[2017-08-07] MEDS: MULTIVITAMINS,THERAPEUTIC TABLET PO SCH (09:24)
[2017-08-07] MEDS: DICYCLOMINE HCL 20 MG TABLET PO SCH ×3 (09:24→21:18)
--- NOTE | 2017-08-07 10:04 | NUR ---
pt was removed off the 1:1
--- NOTE | 2017-08-07 10:35 | NUR ---
endorsed pt to RN, pt is in stable condition
--- NOTE | 2017-08-07 10:44 | NUR ---
Continuity of care Rcvd endorse form day shift nurse, client is in room, a/o x 4, client presents with anxious mood, flat affect, and difficulty staying still. Client reports irritability, chills, sense of panic, headache, and fatigue. Encourage client to attend group therapy to learn skills to maintain sober. Encourage client to increase PO fluid intake as tolerated to facilitate detox. Call light within reach.
--- NOTE | 2017-08-07 10:51 | NUR ---
Verbal information provided on FLU/PNA vaccine, risk/benefits discuss, client refuses vaccines at this time, stating, "I don't believe vaccines work."
[2017-08-07 12:55] VITALS: BP 127/80
[2017-08-07 16:55] VITALS: BP 110/66
--- NOTE | 2017-08-07 19:06 | NUR ---
END OF SHIFT Endorse client to incoming nurse, client is in room, a/o x 4, continue to presents with anxious mood and flat affect. Adequate PO fluid intake 2835mL, void x 4, stool x 1. Client consumes 75- 100% of meals. Client is compliant with group therapy. Client completed 5 day Subutex taper, Modified 3 day Ativan taper. Last COWS 4/CIWA 5 @ 1600. Call light within reach.
--- NOTE | 2017-08-07 19:30 | NUR ---
Start of Shift Pt is a 27 y/o male admitted 08/01/17 for medically managed withdrawal/detox from ETOH, Heroin, Klonopin, Methamphetamine. Met with pt in hallway. Pt happy and euphoric, inappropriate stating Youre still the ugliest nurse Kelsey ever seen. Not enough up top and .. down below. Impending d/c on 08/08 discussed with pt, pt stating he feels terrible and we shouldnt be putting him out. Evening meds discussed, pt refusing Vistoril 50mg PO. Pts room disheveled, with covers heaped on bed, trash on floor. Will continue to monitor, administer 2100 meds including Toradol 30mg IM, and attend promptly to all pt needs
[2017-08-07 20:00] VITALS: BP 125/65
[2017-08-07] MEDS ORDERED: MIRTAZAPINE 15 MG TABLET PO SCH (21:00)
[2017-08-07] MEDS: LEVOFLOXACIN 750 MG TABLET PO SCH (21:21)
[2017-08-07] MEDS: CLONIDINE HCL 0.2 MG TABLET PO SCH (21:21)
--- NOTE | 2017-08-07 21:31 | NUR ---
PRN Med Toradol 30mg IM given for c/o mouth pain (11/14). Will continue to monitor and reassess in 1 hour, promptly attending to all needs
--- NOTE | 2017-08-07 22:31 | NUR ---
PRN Reassessment Toradol 30mg IM to R deltoid for generalized mouth and tongue pain (11/14), pt 1 hour later found sleeping/snoring. Med effective. Will continue to monitor and promptly attend to all needs
--- NOTE | 2017-08-08 | NUR ---
VS's COWS/CIWA Deferred VS's COWS/CIWA Deferred r/t pt sleeping/refused. RR 14, even and non-labored. Will continue to monitor and attend promptly to all pt needs
--- NOTE | 2017-08-08 04:00 | NUR ---
VS's COWS/CIWA Deferred VS's COWS/CIWA Deferred r/t pt sleeping/refused. RR 14, even and non-labored. Will continue to monitor and attend promptly to all pt needs
--- NOTE | 2017-08-08 07:26 | NUR ---
End of Shift Pt is a 27 y/o male admitted 08/01/17 for medically managed withdrawal/detox from ETOH, Herion, Klonopin, Methamphetamine. Pt slept for 6 hours, 1350 intake, 1 void and 0 BMs. Pt is to be d/cd today, 08/08/17. PRNs for shift were one dose Toradol, 30mg IM to R deltoid. Pt displeased with d/c today, feels he needs a longer stay. Behavior manic/euphoric with inappropriate behavior. Tooth/mouth pain concern for patient. Has been on Levaquin PO. C/o tongue rash with small white bumps. Will continue to monitor pt until endorsement, promptly attending to all patient needs.
--- NOTE | 2017-08-08 07:30 | NUR ---
Start of Shift Envelope Addresser received report on 27 year old male admitted to [facility] on 08/01/17 for medical management of ETOH/Benzodiazepine/Opiate withdrawals. Pt endorses NKA, full code and regular diet. PMH to include Hepatitis C and a PPH of anxiety, depression and Bipolar DO. Pt administered Toradol(pain) PRN on NOC. Pt last COWS 4 and CIWA 5, per report. Pt has completed all tapers in anticipation of pt's discharge this morning. Pt will be discharged to [facility]. Envelope Addresser encounters pt in pts room, resting with eyes closed. Rise and fall of chest noted, even and unlabored respirations. Bed in low position with wheels locked and side rails up x2. Will continue to monitor, support and encourage according to plan of care. Addendum: 08/08/17 at 0751 by CHRISTIANE FLORES RN Pt has listed allergies to PCN/amoxicillian
[2017-08-08] MEDS: CLONIDINE HCL 0.1 MG TABLET PO SCH (08:24)
[2017-08-08] MEDS: DICYCLOMINE HCL 20 MG TABLET PO SCH (08:24)
[2017-08-08] MEDS: PANTOPRAZOLE SODIUM 40 MG TABLET.DR PO SCH (08:24)
[2017-08-08] MEDS: LACTOBACILLUS RHAMNOSUS GG 1 EACH CAPSULE PO SCH (08:25)
[2017-08-08] MEDS: FOLIC ACID 1 MG TABLET PO SCH (08:25)
[2017-08-08] MEDS: MULTIVITAMINS,THERAPEUTIC TABLET PO SCH (08:25)
[2017-08-08] MEDS: THIAMINE HCL 100 MG TABLET PO SCH (08:25)
[2017-08-08] MEDS: GABAPENTIN 300 MG CAPSULE PO SCH (08:25)
[2017-08-08 08:30] VITALS: BP 104/56
--- NOTE | 2017-08-08 09:30 | NUR ---
Discharge Pt educated on discharge process, medication and follow-up care. Educated on importance of continued follow-up care and medication compliance. Shredded Filler Cigar Maker Machine educated pt on indication, route, timing and dosages of medication. Advised of need for contact and investment in sober living and surrounding pt with sober friends and a sober environment. Pt denied any further comments, questions or concerns. Pt educated on lab values and discharge education. Pt's home medication, personal belongings and personal care effects all returned to pt. Pt A/O x4 and makes his needs known. Normal affect with congruent mood. Pleasant and cooperative with data analyst report writer. Pt denies HI/SI or A/VH or any other associated symptoms. Pt's VS WNL, pt with no complaints of pain or discomfort. Pt's discharge COWS 2 and CIWA 3. Pt escorted by staff to main lobby with private car awaiting for transport to "[facility]."
== END 2017-08-08 09:30 | disposition home or self-care (01) | DRG 895 ==
LOC: SRC 22:31
PROVIDERS: ADMIT Internal Medicine; ATTEND Internal Medicine
PROC: HZ2ZZZZ Detoxification Services for Substance Abuse Treatment (ICD-10-PCS; principal; 2017-08-01)
PROC: HZ41ZZZ Group Counseling for Substance Abuse Treatment, Behavioral (ICD-10-PCS; 2017-08-07)
DX: F10.239 Alcohol dependence with withdrawal, unspecified (principal); I15.9 Secondary hypertension, unspecified; F15.20 Other stimulant dependence, uncomplicated; F31.9 Bipolar disorder, unspecified; F11.23 Opioid dependence with withdrawal; Y90.0 Blood alcohol level of less than 20 mg/100 ml; Z81.1 Family history of alcohol abuse and dependence; F41.9 Anxiety disorder, unspecified; Z90.49 Acquired absence of other specified parts of digestive tract; F17.210 Nicotine dependence, cigarettes, uncomplicated; Z91.89 Other specified personal risk factors, not elsewhere classified; Z91.5 Personal history of self-harm; Z59.1 Inadequate housing; E86.0 Dehydration; B19.20 Unspecified viral hepatitis C without hepatic coma; F13.10 Sedative, hypnotic or anxiolytic abuse, uncomplicated; R74.0 Nonspecific elevation of levels of transaminase and lactic acid dehydrogenase [LDH]; J02.8 Acute pharyngitis due to other specified organisms; B96.3 Hemophilus influenzae [H. influenzae] as the cause of diseases classified elsewhere
CPT/HCPCS: 36415; 70030-TC; 80307; 80324; 80361; 83735; 85025; 86403; 86592; 86705; 86803; 87070; 87340; 87400; 87806; A4663; G0480; J1885; Q0162